=== PATIENT | male | born 1950 | race Caucasian/White ===

== ENCOUNTER → 2020-01-18 06:59 | Outpatient (CLI) | payer MEDICARE, OTHER, SELFPAY ==
[2020-01-18 07:51] LABS: Add Manual Diff / Slide Review NO; Basophils Absolute Auto 0 /uL (0-100); Basophils Percent Auto 0.7 % (0-2); Eosinophils Absolute Auto 300 /uL (0-450); Eosinophils Percent Auto 4.3 % (2-4); Hemoglobin 14.9 g/dL (13.5-17.5); Lymphocytes Absolute Auto 2500 /uL (1100-4500); Lymphocytes Percent Auto 38.1 % (25-40); Mean Corpuscular HGB Conc 34.6 % (30-36); Mean Corpuscular Hemoglobin 33.8 PG (26-34); Mean Corpuscular Volume 97.6 fL (80-100); Monocytes Absolute Auto 700 /uL (0-900); Monocytes Percent Auto 10.4 % (3-14); Neutrophils Absolute Auto 3000 /uL (1500-7000); Neutrophils Percent Auto 46.5 % (50-75); Platelet Count 162 X10^3/uL (150-400); Red Cell Distribution Width 12.9 % (11.6-14.8); White Blood Cell Count 6.5 X10^3/uL (4.5-11.0)
[2020-01-18 08:23] LABS: Alanine Aminotransferase 259 IU/L (<50); Albumin 4.4 g/dL (3.5-5.0); Albumin Globulin Ratio 1.1 (1.0-2.8); Alkaline Phosphatase 105 U/L (38-126); Aspartate Aminotransferase 192 IU/L (17-59); BUN Creatinine Ratio 25.7 (6-22); Bilirubin Total 0.6 mg/dL (0.2-1.3); Blood Urea Nitrogen 18 mg/dL (9-20); Calcium 9.6 mg/dL (8.4-10.2); Carbon Dioxide 29 mmol/L (22-32); Chloride 104 mmol/L (98-107); Cholesterol 187 mg/dL (140-199); Estimated Glomerular Filt Rate > 60.0 mL/min (>60); Globulin 3.9 g/dL (1.7-4.1); Glucose 159 mg/dL (80-110); HDL Cholesterol 32 mg/dL (40-60); HEMOLYSIS < 15 (0-50); LDL Cholesterol Calculated 118 mg/dL (<100); Potassium 4.3 mmol/L (3.4-5.1); Sodium 138 mmol/L (137-145); Total Protein 8.3 g/dL (6.3-8.2); Triglycerides 187 mg/dL (35-150)
[2020-01-18 08:50] LABS: Prostate Specific Antigen Scrn 0.798 ng/mL (0.1-4.0)
== END ==
PROVIDERS: Family Provider Internal Medicine; PCP Internal Medicine; Referring Provider Internal Medicine; Visit Provider Internal Medicine
DX: B19.20 Unspecified viral hepatitis C without hepatic coma (principal); Z13.6 Encounter for screening for cardiovascular disorders; Z13.1 Encounter for screening for diabetes mellitus; Z13.220 Encounter for screening for lipoid disorders; Z12.5 Encounter for screening for malignant neoplasm of prostate
CPT/HCPCS: 36415; 80053; 80061; 85025; 85610; G0103

== ENCOUNTER → 2020-03-01 08:53 | Outpatient (CLI) | payer MEDICARE, OTHER, SELFPAY ==
[2020-03-01 09:44] LABS: Hematocrit 41.9 % (41-53); Hemoglobin 14.8 g/dL (13.5-17.5); Mean Corpuscular HGB Conc 35.4 % (30-36); Mean Corpuscular Hemoglobin 34.3 PG (26-34); Platelet Count 159 X10^3/uL (150-400); Red Blood Cell Count 4.32 X10^6/uL (4.5-5.9); Red Cell Distribution Width 13.2 % (11.6-14.8); White Blood Cell Count 5.3 X10^3/uL (4.5-11.0)
[2020-03-01 10:03] LABS: Alanine Aminotransferase 166 IU/L (<50); Albumin 4.5 g/dL (3.5-5.0); Albumin Globulin Ratio 1.1 (1.0-2.8); Alkaline Phosphatase 89 U/L (38-126); Aspartate Aminotransferase 112 IU/L (17-59); BUN Creatinine Ratio 26.5 (6-22); Bilirubin Total 0.5 mg/dL (0.2-1.3); Blood Urea Nitrogen 18 mg/dL (9-20); Calcium 9.8 mg/dL (8.4-10.2); Carbon Dioxide 29 mmol/L (22-32); Chloride 103 mmol/L (98-107); Estimated Glomerular Filt Rate > 60.0 mL/min (>60); Globulin 4.1 g/dL (1.7-4.1); Glucose 145 mg/dL (80-110); HEMOLYSIS < 15 (0-50); Potassium 4.4 mmol/L (3.4-5.1); Sodium 137 mmol/L (137-145); Total Protein 8.6 g/dL (6.3-8.2)
[2020-03-01 10:35] LABS: Ferritin 372 ng/mL (18-464)
[2020-03-01 10:48] LABS: Hepatitis B Surface Antigen NEGATIVE s/c (NEGATIVE)
[2020-03-01 10:53] LABS: HEMOLYSIS < 15 (0-50); Iron 176 ug/dL (49-181)
[2020-03-01 11:04] LABS: Percent Iron Saturation 50 % (20-50); Total Iron Binding Capacity 352 ug/dL (261-462); Transferrin 266 mg/dL (206-381)
[2020-03-02 01:45] LABS: Hepatitis A Antibody Total Positive (Negative)
[2020-03-02 05:11] LABS: Ceruloplasmin 21.1 mg/dL (16.0-31.0)
[2020-03-02 09:36] LABS: Hepatitis B Core IgM Negative (Negative); Hepatitis B Surf Ab Qualitativ Non Reactive (.)
[2020-03-03 15:11] LABS: ANA Screen, IFA Negative (.)
[2020-03-04 14:09] LABS: Anti Mitochondrial ABY IGG <20.0 Units (0.0-20.0); Smooth Muscle Antibody 14 Units (0-19)
[2020-03-08 12:54] LABS: HCV Genotype 2b (.); HCV LOG 10 5.013 (.)
[2020-03-08 21:50] LABS: Hepatitis C Genoype 2b (.)
== END ==
PROVIDERS: Family Provider Internal Medicine; PCP Internal Medicine; Referring Provider Nurse Practitioner Family; Visit Provider Nurse Practitioner Family
DX: R94.5 Abnormal results of liver function studies (principal); B18.2 Chronic viral hepatitis C; Z12.11 Encounter for screening for malignant neoplasm of colon
CPT/HCPCS: 36415; 80053; 82248; 82390; 82728; 83516; 83540; 83550; 85027; 86038; 86376; 86705; 86706; 86708; 87340; 87522; 87902

== ENCOUNTER → 2020-08-30 07:20 | Outpatient (CLI) | payer MEDICARE, OTHER, SELFPAY ==
[2020-08-30 08:45] LABS: Add Manual Diff / Slide Review NO; Basophils Absolute Auto 0 /uL (0-100); Basophils Percent Auto 0.5 % (0-2); Eosinophils Absolute Auto 300 /uL (0-450); Eosinophils Percent Auto 4.9 % (2-4); Hematocrit 41.8 % (41-53); Hemoglobin 14.5 g/dL (13.5-17.5); Lymphocytes Absolute Auto 2300 /uL (1100-4500); Lymphocytes Percent Auto 39.9 % (25-40); Mean Corpuscular HGB Conc 34.6 % (30-36); Mean Corpuscular Hemoglobin 34.1 PG (26-34); Mean Corpuscular Volume 98.6 fL (80-100); Monocytes Absolute Auto 500 /uL (0-900); Monocytes Percent Auto 8.7 % (3-14); Neutrophils Absolute Auto 2600 /uL (1500-7000); Platelet Count 140 X10^3/uL (150-400); Red Blood Cell Count 4.24 X10^6/uL (4.5-5.9); Red Cell Distribution Width 12.8 % (11.6-14.8); White Blood Cell Count 5.7 X10^3/uL (4.5-11.0)
[2020-08-30 09:16] LABS: Alanine Aminotransferase 94 IU/L (<50); Albumin 4.6 g/dL (3.5-5.0); Albumin Globulin Ratio 1.1 (1.0-2.8); Alkaline Phosphatase 228 U/L (38-126); Aspartate Aminotransferase 88 IU/L (17-59); Bilirubin Total 0.8 mg/dL (0.2-1.3); Blood Urea Nitrogen 21 mg/dL (9-20); Calcium 10.4 mg/dL (8.4-10.2); Carbon Dioxide 28 mmol/L (22-32); Chloride 96 mmol/L (98-107); Estimated Glomerular Filt Rate > 60.0 mL/min (>60); Globulin 4.2 g/dL (1.7-4.1); HEMOLYSIS < 15 (0-50); Potassium 5.2 mmol/L (3.4-5.1); Sodium 132 mmol/L (137-145); Total Protein 8.8 g/dL (6.3-8.2)
[2020-08-30 09:36] LABS: Glucose 650 mg/dL (80-110)
[2020-08-30 10:31] LABS: Hemoglobin A1C% w Est Avg Glu 9.5 % (4.0-6.0)
== END ==
PROVIDERS: Family Provider Internal Medicine; PCP Internal Medicine; Referring Provider Nurse Practitioner Family; Visit Provider Nurse Practitioner Family
DX: B18.2 Chronic viral hepatitis C (principal); R73.9 Hyperglycemia, unspecified
CPT/HCPCS: 36415; 80053; 83036; 85025; 87522

== ENCOUNTER 2020-08-30 11:09 | Emergency (ER) | payer OTHER, MEDICARE, SELFPAY ==
[2020-08-30 11:51] VITALS: BP 182/90; PULSE 71; RESP 18; TEMP 36.3; O2SAT 97; BMI 30.1
[2020-08-30] MEDS: LACTATED RINGERS 1,000 ML 1000 ML IV ×2 (14:20→15:35)
--- NOTE | 2020-08-30 15:19 | ED.RECABL ---
HPI - Recheck/Abnormal Lab/Rx General Chief Complaint: Recheck/Abnormal Lab/Rx Stated Complaint: REAL HIGH READING OF BLOOD SUGAR Time Seen by Provider: 08/30/20 12:16 Source: patient Mode of arrival: Ambulatory Limitations: no limitations History of Present Illness HPI narrative: This is a 69-year-old male who comes in with complaint of elevated glucose on his lab draw. Patient was recently started on Epclusa a medication for hepatitis-C. He takes it daily and started 4 weeks ago. He was started by [facility] out of [place]. Patient does not recall his relationship specialist's name. His primary care is Dr. Gramajo. Patient states he otherwise has no known medical issues. He has not had any major surgeries. He is allergic to penicillin. He denies tobacco, alcohol or illicit. Patient is noted his vision has been a little bit better lately when he is driving at nighttime, he denies headaches, no chest pain or shortness of breath, no cold cough or congestion, he has had some mild nausea but states he was told that was secondary to his medication. He has not had any diarrhea or constipation. He has had urinary frequency any but had some new urinary incontinence. Patient has not had any dysuria or discharge. Patient states he is not a diabetic he was contacted and told his glucose was in the 600 range and to go to the emergency department earlier today after follow-up labs that were scheduled because of his current medication. Related Data Home Medications Medication Instructions Recorded Confirmed CA PANTOTHENATE/FOLIC ACID/VIT 1 tab PO Q DAY #0 12/26/10 01/17/20 (MULTIVITAMIN) Joint Juice 1 cap PO DAILY 01/17/20 Previous Rx's Medication Instructions Recorded metformin 500 mg tablet 500 mg PO BID #30 tab 08/30/20 Allergies Allergy/AdvReac Type Severity Reaction Status Date / Time Penicillins [PENICILLINS] Allergy Intermediate RASH Verified 01/17/20 11:38 Review of Systems Review of Systems ROS Unobtainable: All systems reviewed & are unremarkable except as noted in HPI and below Patient History Medical History (Updated 08/30/20 @ 15:35 by Micheline Pringle DO) Adopted Attention deficit disorder with hyperactivity (12/26/10) Hepatitis C Mumps Partial blindness (~1950) Seizure Surgical History (Updated 01/17/20 @ 20:41 by Radha Castillo) Anesthesia History of hand surgery (~2007) S/P tonsillectomy (~1959) Social History Smoking Status: Former smoker Smoking Status: Former smoker alcohol intake frequency: 0-2 drinks per day Substance Use Type: does not use Exam Narrative Exam Narrative: GENERAL: Alert and oriented x three, male in mild distress. HEENT: Head normocephalic, atraumatic, EOMI, pupils reactive, face symmetric, moist mucous membranes NECK: Supple, full range of motion CARDIOVASCULAR: Regular rate and rhythm without murmurs, rubs or gallops. RESPIRATORY: Breath sounds equal bilaterally, no wheezes rales or rhonchi. ABDOMEN: Soft, nontender. Normoactive bowel sounds all 4 quadrants. No guarding or rebound, rigidity, no mass : No CVA tenderness EXTREMITIES: Normal range of motion, no clubbing or edema. Neurovascularly intact NEUROLOGICAL: Cranial nerves II through XII grossly intact. Moving all extremities SKIN: Warm, dry, no petechiae, no rashes or lesions. Initial Vital Signs Initial Vital Signs: Vital Signs Temperature 97.3 F L 08/30/20 11:51 Pulse Rate 71 08/30/20 11:51 Respiratory Rate 18 08/30/20 11:51 Blood Pressure 182/90 H 08/30/20 11:51 Pulse Oximetry 97 08/30/20 11:51 Course Orders Ordered: ED Orders 08/30/20 12:21 Venous Blood Gas Stat 08/30/20 14:12 Complete Blood Count AUTO DIFF Stat Comprehensive Metabolic Panel Stat Ketones (Beta-Hydroxybutyrate) Stat Procalcitonin Stat Discontinued Medications Lactated Ringer's (Lactated Ringers) 1,000 mls @ 1,000 mls/hr IV BOLUS ONE Stop: 08/30/20 13:20 Last Infusion: 08/30/20 15:28 Dose: 0 mls/hr Documented by: [email or web address] Admin: 08/30/20 14:20 Dose: 1,000 mls/hr Documented by: [email or web address] Sodium Chloride (Normal Saline 0.9%) 1,000 mls @ 1,000 mls/hr IV BOLUS ONE Stop: 08/30/20 16:25 Lactated Ringer's (Lactated Ringers) 1,000 mls @ 1,000 mls/hr IV BOLUS ONE Stop: 08/30/20 16:33 Last Infusion: 08/30/20 16:35 Dose: 0 mls/hr Documented by: Admin: 08/30/20 15:35 Dose: 1,000 mls/hr Documented by: NATALY Consultations Consultation #1: Dr. Maddox with [facility], is not aware of any side effects with hyperglycemia or diabetes but there is potential it could add mask or worsen. Consultation #2: Dr. Gramajo, plan for metformin 500 mg b.i.d. if there is an appropriate side effect profile glipizide be back up choice. Have patient follow-up in the next week. Vital Signs Vital signs: Vital Signs - 8 hr 08/30/20 11:51 Temperature 97.3 F L Pulse Rate 71 Respiratory Rate 18 Blood Pressure 182/90 H Pulse Oximetry 97 MDM - Recheck/Abnormal Lab/Rx Lab Data Lab results narrative: anion gap 10. Patient had labs drawn earlier today which showed a glucose of 650, sodium of 132 with potassium of 5.2 and a BUN of 21 with a CO2 of 28. Patient also had a hemoglobin A1c which was 9.5 earlier today. LFTs are elevated but do not appear significantly elevated from earlier this year except for alk-phos which is 228 followed by 197 today. Point of care urine shows glucose but no other acute changes. Result diagrams: 08/30/20 14:12 08/30/20 14:12 Labs: Lab Results 08/30/20 08/30/20 Range/Units 14:12 14:12 WBC 7.2 (4.5-11.0) X10^3/uL RBC 4.34 L (4.5-5.9) X10^6/uL Hgb 14.9 (13.5-17.5) g/dL Hct 42.0 (41-53) % MCV 96.8 (80-100) fL MCH 34.2 H (26-34) PG MCHC 35.4 (30-36) % RDW 12.5 (11.6-14.8) % Plt Count 153 (150-400) X10^3/uL Neut % (Auto) 42.6 L (50-75) % Lymph % (Auto) 44.4 H (25-40) % [place] % (Auto) 8.3 (3-14) % Eos % (Auto) 4.0 (2-4) % Baso % (Auto) 0.7 (0-2) % Neut # (Auto) 3100 (1102-0864) /uL Lymph # (Auto) 3200 (4650-5866) /uL [place] # (Auto) 600 (0-900) /uL Eos # (Auto) 300 (0-450) /uL Baso # (Auto) 100 (0-100) /uL Sodium 135 L (137-145) mmol/L Potassium 4.4 (3.4-5.1) mmol/L Chloride 97 L (98-107) mmol/L Carbon Dioxide 28 (22-32) mmol/L BUN 19 (9-20) mg/dL Creatinine 0.73 (0.66-1.25) mg/dL Estimated GFR > 60.0 (>60) mL/min BUN/Creatinine Ratio 26.0 H (6-22) Glucose 497 H* (80-110) mg/dL Calcium 10.5 H (8.4-10.2) mg/dL Total Bilirubin 0.9 (0.2-1.3) mg/dL AST 95 H (17-59) IU/L ALT 106 H (<50) IU/L Alkaline Phosphatase 197 H (38-126) U/L Total Protein 9.6 H (6.3-8.2) g/dL Albumin 4.9 (3.5-5.0) g/dL Globulin 4.7 H (1.7-4.1) g/dL Albumin/Globulin Ratio 1.0 (1.0-2.8) Procalcitonin 0.18 (<0.5) ng/mL Ketones 0.18 (<0.27) mmol/L Point of Care Testing Glucose POC 361 Urine Dip Bedside Urine Glucose 1000 mg/dl Bedside Urine Bilirubin - Negative Bedside Urine Ketone - Negative Urine Specific [place] 1.015 Bedside Urine Occult Blood - Negative Bedside Urine pH 6.0 Bedside Urine Protein - Negative Bedside Urine Urobilinogen - Negative Bedside Urine Nitrite - Negative Bedside Urine Leukocytes - Negative Esterase MDM Narrative Medical decision making narrative: Is a 69-year-old male who had outpatient labs after starting a hepatitis-C antiviral medication, patient glucose was in the 600 range. On review hemoglobin A1c is 9.5 and patient is likely just a diabetic and I did speak with gastroenterology who states this medication is not expected to cause issues in terms of side effects and causing diabetes or hyperglycemia. This was also reviewed independently by myself through alternate resources which also states the same. Patient is hyperglycemic, does not appear to be in DKA. I does not have any acute yes infectious findings at this time or other causes. Patient glucose improved quite a bit purely with fluids. Discussed with primary care who recommends metformin or glipizide depending on the side effect profiles. After review metformin was selected as less likely to cause hypoglycemia, there is potential for interaction with medications patient is to follow up within the week with his primary care physician for repeat testing and evaluation. All questions were answered. Discharge Plan Departure Patient Disposition: Home Clinical Impression: Hyperglycemia Instructions: Complications of Type 2 Diabetes Activity Restrictions/Additional Instructions: Follow-up with Dr. Gramajo in the next week. Call for an appointment. You will need to have your labs rechecked. Start metformin 500 mg twice daily. This medication can cause diarrhea or loose stools so please be aware. This medication does not typically cause hypoglycemia but there is slightly increased potential with your current hepatitis C medication. Your labs today do reflect that you are diabetic, 1 of your labs a hemoglobin A1c which is a type of average over 3 months is quite elevated making your new medication and unlikely cause of her hyperglycemia Prescription sent to [facility] in [place] Please return for lightheadedness or passing out, altered mental status, chest pain or shortness of breath, persistent vomiting, new swelling of her extremities, black or bloody stools or other new or concerning symptoms. Prescriptions: New metformin 500 mg tablet 500 mg PO BID Qty: 30 RF: 0 No Action CA PANTOTHENATE/FOLIC ACID/VIT (MULTIVITAMIN) 1 tab PO Q DAY Qty: 0 RF: 0 Joint Juice 1 cap PO DAILY RF: 0 Referrals: Karthikeyan Gramajo MD [Primary Care Provider] -
== END 2020-08-30 16:45 | disposition home or self-care (01) ==
PROVIDERS: Emergency Provider Emergency Medicine; Family Provider Internal Medicine; PCP Internal Medicine
DX: R73.9 Hyperglycemia, unspecified (principal); B18.2 Chronic viral hepatitis C
CPT/HCPCS: 36415; 80053; 81003; 82009; 82962; 83036; 84145; 85025; 87522; 96360; 96361; 99284

== ENCOUNTER → 2020-09-27 08:09 | Outpatient (CLI) | payer OTHER, MEDICARE, SELFPAY ==
[2020-09-27 09:58] LABS: Add Manual Diff / Slide Review NO; Basophils Absolute Auto 0 /uL (0-100); Basophils Percent Auto 0.7 % (0-2); Eosinophils Absolute Auto 300 /uL (0-450); Eosinophils Percent Auto 5.3 % (2-4); Hematocrit 37.9 % (41-53); Hemoglobin 13.3 g/dL (13.5-17.5); Lymphocytes Absolute Auto 2600 /uL (1100-4500); Lymphocytes Percent Auto 47.6 % (25-40); Mean Corpuscular HGB Conc 35.1 % (30-36); Mean Corpuscular Hemoglobin 33.9 PG (26-34); Mean Corpuscular Volume 96.6 fL (80-100); Monocytes Absolute Auto 500 /uL (0-900); Monocytes Percent Auto 8.3 % (3-14); Neutrophils Absolute Auto 2100 /uL (1500-7000); Neutrophils Percent Auto 38.1 % (50-75); Platelet Count 172 X10^3/uL (150-400); Red Blood Cell Count 3.93 X10^6/uL (4.5-5.9); White Blood Cell Count 5.5 X10^3/uL (4.5-11.0)
[2020-09-27 10:39] LABS: Alanine Aminotransferase 77 IU/L (<50); Albumin 4.5 g/dL (3.5-5.0); Albumin Globulin Ratio 1.2 (1.0-2.8); Alkaline Phosphatase 98 U/L (38-126); Aspartate Aminotransferase 78 IU/L (17-59); BUN Creatinine Ratio 46.7 (6-22); Bilirubin Total 0.4 mg/dL (0.2-1.3); Blood Urea Nitrogen 28 mg/dL (9-20); Calcium 10.5 mg/dL (8.4-10.2); Carbon Dioxide 25 mmol/L (22-32); Chloride 108 mmol/L (98-107); Estimated Glomerular Filt Rate > 60.0 mL/min (>60); Globulin 3.9 g/dL (1.7-4.1); Glucose 113 mg/dL (80-110); HEMOLYSIS < 15 (0-50); Potassium 4.4 mmol/L (3.4-5.1); Sodium 141 mmol/L (137-145); Total Protein 8.4 g/dL (6.3-8.2)
== END ==
PROVIDERS: Family Provider Internal Medicine; PCP Internal Medicine; Referring Provider Nurse Practitioner Family; Visit Provider Nurse Practitioner Family
DX: B18.2 Chronic viral hepatitis C (principal)
CPT/HCPCS: 36415; 80053; 85025; 87522

== ENCOUNTER → 2020-11-20 11:18 | Outpatient (CLI) | payer OTHER, MEDICARE, SELFPAY ==
[2020-11-20 11:58] LABS: BUN Creatinine Ratio 33.8 (6-22); Blood Urea Nitrogen 26 mg/dL (9-20); Calcium 10.3 mg/dL (8.4-10.2); Carbon Dioxide 30 mmol/L (22-32); Chloride 105 mmol/L (98-107); Estimated Glomerular Filt Rate > 60.0 mL/min (>60); Glucose 94 mg/dL (80-110); HEMOLYSIS < 15 (0-50); Potassium 4.7 mmol/L (3.4-5.1); Sodium 143 mmol/L (137-145)
== END ==
PROVIDERS: Family Provider Internal Medicine; PCP Internal Medicine; Referring Provider Internal Medicine; Visit Provider Internal Medicine
DX: E11.65 Type 2 diabetes mellitus with hyperglycemia (principal)
CPT/HCPCS: 36415; 80048; 83036

== ENCOUNTER → 2020-12-20 15:09 | Outpatient (CLI) | payer OTHER, MEDICARE, SELFPAY ==
[2020-12-20 15:50] LABS: Add Manual Diff / Slide Review NO; Basophils Absolute Auto 0 /uL (0-100); Basophils Percent Auto 0.6 % (0-2); Eosinophils Absolute Auto 200 /uL (0-450); Eosinophils Percent Auto 3.9 % (2-4); Hematocrit 38.8 % (41-53); Hemoglobin 13.4 g/dL (13.5-17.5); Lymphocytes Absolute Auto 2800 /uL (1100-4500); Lymphocytes Percent Auto 47.2 % (25-40); Mean Corpuscular HGB Conc 34.7 % (30-36); Mean Corpuscular Hemoglobin 33.3 PG (26-34); Mean Corpuscular Volume 96.2 fL (80-100); Monocytes Absolute Auto 600 /uL (0-900); Monocytes Percent Auto 9.8 % (3-14); Neutrophils Absolute Auto 2300 /uL (1500-7000); Neutrophils Percent Auto 38.5 % (50-75); Platelet Count 188 X10^3/uL (150-400); Red Blood Cell Count 4.03 X10^6/uL (4.5-5.9)
[2020-12-20 16:13] LABS: Alanine Aminotransferase 47 IU/L (<50); Albumin 4.7 g/dL (3.5-5.0); Albumin Globulin Ratio 1.4 (1.0-2.8); Alkaline Phosphatase 89 U/L (38-126); Aspartate Aminotransferase 51 IU/L (17-59); Bilirubin Total 0.4 mg/dL (0.2-1.3); Blood Urea Nitrogen 33 mg/dL (9-20); Calcium 9.9 mg/dL (8.4-10.2); Carbon Dioxide 28 mmol/L (22-32); Chloride 103 mmol/L (98-107); Estimated Glomerular Filt Rate > 60.0 mL/min (>60); Globulin 3.3 g/dL (1.7-4.1); Glucose 108 mg/dL (80-110); HEMOLYSIS < 15 (0-50); Potassium 4.4 mmol/L (3.4-5.1); Sodium 143 mmol/L (137-145)
== END ==
PROVIDERS: Family Provider Internal Medicine; PCP Internal Medicine; Referring Provider Nurse Practitioner Family; Visit Provider Nurse Practitioner Family
DX: B18.2 Chronic viral hepatitis C (principal)
CPT/HCPCS: 36415; 80053; 85025; 87522

== ENCOUNTER → 2021-03-05 15:31 | Outpatient (CLI) | payer OTHER, MEDICARE, SELFPAY ==
[2021-03-05 16:40] LABS: BUN Creatinine Ratio 38.6 (6-22); Blood Urea Nitrogen 32 mg/dL (9-20); Calcium 9.9 mg/dL (8.4-10.2); Carbon Dioxide 31 mmol/L (22-32); Chloride 105 mmol/L (98-107); Estimated Glomerular Filt Rate > 60.0 mL/min (>60); Glucose 113 mg/dL (80-110); HEMOLYSIS < 15 (0-50); Sodium 143 mmol/L (137-145)
[2021-03-05 16:44] LABS: Hemoglobin A1C% w Est Avg Glu 5.7 % (4.0-6.0)
== END ==
PROVIDERS: Family Provider Internal Medicine; PCP Internal Medicine; Referring Provider Internal Medicine; Visit Provider Internal Medicine
DX: E11.65 Type 2 diabetes mellitus with hyperglycemia (principal)
CPT/HCPCS: 36415; 80048; 83036

== ENCOUNTER → 2021-10-18 10:18 | Outpatient (CLI) | payer OTHER, MEDICARE, SELFPAY ==
[2021-10-18 10:56] LABS: Hemoglobin A1C% w Est Avg Glu 5.8 % (4.0-6.0)
[2021-10-18 12:36] LABS: Alanine Aminotransferase 63 IU/L (<50); Albumin 4.7 g/dL (3.5-5.0); Albumin Globulin Ratio 1.3 (1.0-2.8); Alkaline Phosphatase 69 U/L (38-126); Aspartate Aminotransferase 58 IU/L (17-59); BUN Creatinine Ratio 31.6 (6-22); Bilirubin Total 0.6 mg/dL (0.2-1.3); Blood Urea Nitrogen 24 mg/dL (9-20); Calcium 9.9 mg/dL (8.4-10.2); Carbon Dioxide 27 mmol/L (22-32); Chloride 106 mmol/L (98-107); Estimated Glomerular Filt Rate > 60 mL/min (>60); Globulin 3.7 g/dL (1.7-4.1); Glucose 101 mg/dL (80-110); HEMOLYSIS < 15 (0-50); Potassium 4.7 mmol/L (3.4-5.1); Sodium 139 mmol/L (137-145); Total Protein 8.4 g/dL (6.3-8.2)
[2021-10-18 13:04] LABS: Prostate Specific Antigen Scrn 1.34 ng/mL (0.1-4.0)
== END ==
PROVIDERS: Family Provider Internal Medicine; PCP Internal Medicine; Referring Provider Internal Medicine; Visit Provider Internal Medicine
DX: B18.2 Chronic viral hepatitis C (principal); E11.9 Type 2 diabetes mellitus without complications; Z12.5 Encounter for screening for malignant neoplasm of prostate
CPT/HCPCS: 36415; 80053; 83036; G0103

== ENCOUNTER → 2022-04-18 07:39 | Outpatient (CLI) | payer OTHER, MEDICARE, SELFPAY ==
[2022-04-18 08:11] LABS: Hemoglobin A1C% w Est Avg Glu 6.1 % (4.0-6.0)
[2022-04-18 08:21] LABS: BUN Creatinine Ratio 27.1 (6-22); Blood Urea Nitrogen 23 mg/dL (9-20); Calcium 9.6 mg/dL (8.4-10.2); Carbon Dioxide 25 mmol/L (22-32); Chloride 104 mmol/L (98-107); Estimated Glomerular Filt Rate > 60 mL/min (>60); Glucose 123 mg/dL (80-110); HEMOLYSIS < 15 (0-50); Potassium 4.5 mmol/L (3.4-5.1); Sodium 141 mmol/L (137-145)
[2022-04-18 08:46] LABS: Microalbumi Creatinin Ratio Ur 51.8 ug/mg CR (<30); Microalbumin Urine Random 12.7 mg/dL (0-1.6)
== END ==
PROVIDERS: Family Provider Internal Medicine; PCP Internal Medicine; Referring Provider Internal Medicine; Visit Provider Internal Medicine
DX: E11.9 Type 2 diabetes mellitus without complications (principal)
CPT/HCPCS: 36415; 80048; 82043; 82570; 83036

== ENCOUNTER → 2022-10-18 08:36 | Outpatient (CLI) | payer OTHER, MEDICARE, SELFPAY ==
[2022-10-18 10:15] LABS: Hemoglobin A1C% w Est Avg Glu 5.9 % (4.0-6.0)
[2022-10-18 10:19] LABS: Alanine Aminotransferase 96 IU/L (<50); Albumin 4.8 g/dL (3.5-5.0); Albumin Globulin Ratio 1.3 (1.0-2.8); Alkaline Phosphatase 59 U/L (38-126); Aspartate Aminotransferase 68 IU/L (17-59); BUN Creatinine Ratio 27.1 (6-22); Bilirubin Total 0.8 mg/dL (0.2-1.3); Blood Urea Nitrogen 23 mg/dL (9-20); Calcium 9.5 mg/dL (8.4-10.2); Carbon Dioxide 26 mmol/L (22-32); Chloride 106 mmol/L (98-107); Cholesterol 218 mg/dL (140-199); Estimated Glomerular Filt Rate > 60 mL/min (>60); Globulin 3.8 g/dL (1.7-4.1); Glucose 126 mg/dL (80-110); HDL Cholesterol 32 mg/dL (40-60); HEMOLYSIS < 15 (0-50); LDL Cholesterol Calculated 152 mg/dL (<100); Potassium 4.2 mmol/L (3.4-5.1); Sodium 140 mmol/L (137-145); Total Protein 8.6 g/dL (6.3-8.2); Triglycerides 169 mg/dL (35-150)
[2022-10-18 12:02] LABS: Creatinine Urine Random 128.5 mg/dL
[2022-10-18 12:05] LABS: Microalbumi Creatinin Ratio Ur 38.1 ug/mg CR (<30); Microalbumin Urine Random 4.9 mg/dL (0-1.6)
== END ==
PROVIDERS: Family Provider Internal Medicine; PCP Internal Medicine; Referring Provider Internal Medicine; Visit Provider Internal Medicine
DX: B19.20 Unspecified viral hepatitis C without hepatic coma (principal); E11.9 Type 2 diabetes mellitus without complications; Z13.220 Encounter for screening for lipoid disorders; Z13.6 Encounter for screening for cardiovascular disorders
CPT/HCPCS: 36415; 80053; 80061; 82043; 82570; 83036

== ENCOUNTER → 2023-04-18 08:37 | Outpatient (CLI) | payer OTHER, MEDICARE, SELFPAY ==
[2023-04-18 09:37] LABS: Hemoglobin A1C% w Est Avg Glu 6.2 % (4.0-6.0)
[2023-04-18 09:39] LABS: Alanine Aminotransferase 54 IU/L (<50); Albumin 4.6 g/dL (3.5-5.0); Albumin Globulin Ratio 1.3 (1.0-2.8); Alkaline Phosphatase 56 U/L (38-126); Aspartate Aminotransferase 50 IU/L (17-59); BUN Creatinine Ratio 28.2 (6-22); Bilirubin Total 0.7 mg/dL (0.2-1.3); Blood Urea Nitrogen 22 mg/dL (9-20); Calcium 9.5 mg/dL (8.4-10.2); Carbon Dioxide 26 mmol/L (22-32); Chloride 106 mmol/L (98-107); Cholesterol 107 mg/dL (140-199); Estimated Glomerular Filt Rate > 60 mL/min (>60); Globulin 3.5 g/dL (1.7-4.1); Glucose 119 mg/dL (80-110); HDL Cholesterol 34 mg/dL (40-60); HEMOLYSIS < 15 (0-50); LDL Cholesterol Calculated 49 mg/dL (<100); Potassium 4.4 mmol/L (3.4-5.1); Sodium 140 mmol/L (137-145); Total Protein 8.1 g/dL (6.3-8.2); Triglycerides 118 mg/dL (35-150)
== END ==
PROVIDERS: Family Provider Internal Medicine; PCP Internal Medicine; Referring Provider Internal Medicine; Visit Provider Internal Medicine
DX: E11.9 Type 2 diabetes mellitus without complications (principal); E78.2 Mixed hyperlipidemia
CPT/HCPCS: 80053; 80061; 83036

== ENCOUNTER → 2023-08-11 14:58 | Outpatient (CLI) | payer OTHER, MEDICARE, SELFPAY ==
[2023-08-11 15:54] LABS: Influenza A - CEPHEID Flu A NEGATIVE (NEGATIVE); Influenza B - CEPHEID Flu B NEGATIVE (NEGATIVE); Respiratory Syncytial Virus Negative (Negative)
[2023-08-11 15:57] LABS: COVID-19 CEPHEID 4-PLEX PCR POSITIVE (Negative)
== END ==
PROVIDERS: Family Provider Internal Medicine; PCP Internal Medicine; Visit Provider Internal Medicine
DX: B34.9 Viral infection, unspecified (principal)
CPT/HCPCS: 0241U

== ENCOUNTER 2023-08-14 16:36 | Emergency (ER) | payer OTHER, MEDICARE, SELFPAY ==
[2023-08-14 16:39] VITALS: BP 160/71; PULSE 74; RESP 18; TEMP 36.3; O2SAT 95; BMI 28.7
[2023-08-14] MEDS: KETOROLAC 30 MG/ML VIAL IV (17:19)
[2023-08-14 17:30] LABS: Add Manual Diff / Slide Review NO; Basophils Absolute Auto 0 /uL (0-100); Basophils Percent Auto 0.4 % (0-2); Eosinophils Absolute Auto 300 /uL (0-450); Eosinophils Percent Auto 3.7 % (2-4); Hematocrit 40.2 % (41-53); Hemoglobin 13.9 g/dL (13.5-17.5); Lymphocytes Absolute Auto 2200 /uL (1100-4500); Lymphocytes Percent Auto 30.5 % (25-40); Mean Corpuscular HGB Conc 34.6 % (30-36); Mean Corpuscular Hemoglobin 32.9 PG (26-34); Mean Corpuscular Volume 94.9 fL (80-100); Monocytes Absolute Auto 500 /uL (0-900); Monocytes Percent Auto 7.3 % (3-14); Neutrophils Absolute Auto 4300 /uL (1500-7000); Neutrophils Percent Auto 58.1 % (50-75); Platelet Count 255 X10^3/uL (150-400); Red Blood Cell Count 4.24 X10^6/uL (4.5-5.9); Red Cell Distribution Width 13.5 % (11.6-14.8); White Blood Cell Count 7.3 X10^3/uL (4.5-11.0)
[2023-08-14 17:34] LABS: D Dimer 533 ng/ml (<500)
[2023-08-14 17:35] LABS: BUN Creatinine Ratio 27.7 (6-22); Blood Urea Nitrogen 28 mg/dL (9-20); Calcium 10.9 mg/dL (8.4-10.2); Carbon Dioxide 25 mmol/L (22-32); Chloride 104 mmol/L (98-107); Estimated Glomerular Filt Rate > 60 mL/min (>60); Glucose 103 mg/dL (80-110); HEMOLYSIS < 15 (0-50); Potassium 5.1 mmol/L (3.4-5.1); Sodium 140 mmol/L (137-145)
--- NOTE | 2023-08-14 18:14 | ED_ITS ---
HPI - Extremity Problem General Chief complaint: Extremity Problem,Nontraumatic Stated complaint: Lt leg pain Time Seen by Provider: 08/14/23 17:04 Source: patient, family, RN notes reviewed and old records reviewed Mode of arrival: Ambulatory Limitations: no limitations History of Present Illness HPI Narrative: 72-year-old male with history of chronic arthritis, hepatitis-C diabetes type 2 and dyslipidemia who presents with complaint of left lateral thigh pain. Patient states pain is particularly worse when he coughs it sort of moved from his buttock down his leg. He denies any swelling, no redness. He states it just started in the last 2 days. He has recently had a diagnosis of COVID he has not reported any fevers but has had cough cold and congestion be generally fatigued. He denies any chest pain denies any shortness of breath. No nausea or vomiting. He has had some diarrhea after starting antiviral for his COVID. Denies any incontinence. Patient has not had similar symptoms in the past. He does state he chronically has aches and pains from his arthritis. Reported allergy to penicillin. Related Data Home Medications Medication Instructions Recorded Confirmed CA PANTOTHENATE/FOLIC ACID/VIT 1 tab PO Q DAY ##0 12/26/10 08/11/23 (MULTIVITAMIN) acetaminophen 500 mg tablet 1,000 mg PO BID PRN 04/24/23 08/11/23 (Tylenol Extra Strength) celecoxib 200 mg capsule 200 mg PO BID 04/24/23 08/11/23 sulfasalazine 500 mg tablet 1,000 mg PO BID 08/11/23 08/11/23 Previous Rx's Medication Instructions Recorded rosuvastatin 20 mg tablet 20 mg PO DAILY #90 tabs 10/24/22 nirmatrelvir 300 mg (150 mg See Rx Instructions PO .COMPLEX 5 08/11/23 x2)-ritonavir 100 mg tablet,dose days #30 tabs pack (Paxlovid) oxycodone 5 mg tablet 5 mg PO Q6H PRN pain #10 tabs 08/14/23 Allergies Allergy/AdvReac Type Severity Reaction Status Date / Time Penicillins [PENICILLINS] AdvReac Intermediate RASH Verified 08/14/23 16:38 Review of Systems Review of Systems ROS Unobtainable: All systems reviewed & are unremarkable except as noted in HPI and below Patient History Medical History Diabetic nephropathy Mixed hyperlipidemia 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 NECK: Supple, full range of motion CARDIOVASCULAR: Regular rate and rhythm without murmurs, rubs or gallops. RESPIRATORY: Breath sounds equal bilaterally, no wheezes rales or rhonchi. ABDOMEN: Soft, nontender. Normoactive bowel sounds all 4 quadrants. No guarding or rebound, rigidity, no mass : No CVA tenderness BACK: No cervical, thoracic or lumbar vertebral point tenderness. Patient has normal range of motion. Patient's gait is normal. EXTREMITIES: Normal range of motion, no clubbing or edema. Neurovascularly intact. Swelling warmth or erythema or other changes. Patient has 5/5 muscle strength. Normal sensation throughout. Does not have any increased pain on palpation. Cap refill less than 2 seconds bilateral lower extremities. Patient able to stand and ambulate without issue NEUROLOGICAL: Cranial nerves II through XII grossly intact. Moving all extremities SKIN: Warm, dry, no petechiae, no rashes or lesions. Initial Vital Signs Initial Vital Signs: Vital Signs Temperature 97.3 F L 08/14/23 16:39 Pulse Rate 74 08/14/23 16:39 Respiratory Rate 18 08/14/23 16:39 Blood Pressure 160/71 H 08/14/23 16:39 Pulse Oximetry 95 08/14/23 16:39 Oxygen Delivery Method Room Air 08/14/23 16:39 Course Orders Ordered: Discontinued Medications Ketorolac Tromethamine (Ketorolac 30 Mg/Ml Vial) 30 mg IV NOW ONE Stop: 08/14/23 17:07 Last Admin: 08/14/23 17:19 Dose: 30 mg Documented By: DKVarsha Vital Signs Vital signs: Vital Signs - 8 hr 08/14/23 16:39 08/14/23 19:37 Temperature 97.3 F L Pulse Rate 74 81 Respiratory Rate 18 18 Blood Pressure 160/71 H 149/74 H Pulse Oximetry 95 97 Oxygen Delivery Method Room Air MDM - Extremity (Nontraumatic) Lab Data 08/14/23 17:16 08/14/23 17:16 Labs: Lab Results 08/14/23 Range/Units 17:16 WBC 7.3 (4.5-11.0) X10^3/uL RBC 4.24 L (4.5-5.9) X10^6/uL Hgb 13.9 (13.5-17.5) g/dL Hct 40.2 L (41-53) % MCV 94.9 (80-100) fL MCH 32.9 (26-34) PG MCHC 34.6 (30-36) % RDW 13.5 (11.6-14.8) % Plt Count 255 (150-400) X10^3/uL Neut % (Auto) 58.1 (50-75) % Lymph % (Auto) 30.5 (25-40) % [place] % (Auto) 7.3 (3-14) % Eos % (Auto) 3.7 (2-4) % Baso % (Auto) 0.4 (0-2) % Neut # (Auto) 4300 (2959-2914) /uL Lymph # (Auto) 2200 (4592-0076) /uL [place] # (Auto) 500 (0-900) /uL Eos # (Auto) 300 (0-450) /uL Baso # (Auto) 0 (0-100) /uL D-Dimer 533 H (<500) ng/ml Sodium 140 (137-145) mmol/L Potassium 5.1 (3.4-5.1) mmol/L Chloride 104 (98-107) mmol/L Carbon Dioxide 25 (22-32) mmol/L BUN 28 H (9-20) mg/dL Creatinine 1.01 (0.66-1.25) mg/dL Estimated GFR > 60 (>60) mL/min BUN/Creatinine Ratio 27.7 H (6-22) Glucose 103 (80-110) mg/dL Calcium 10.9 H (8.4-10.2) mg/dL Imaging Data US - DVT: Radiologist's Impression: [address] [address] Ultrasound Report Signed Patient: Faheem Huston MR#: [id number] : 1950 Acct:[id number] Age/Sex: 72 / M Date of Service: 08/14/23 Loc: ED Accession Number: [id number] Procedure: US periph venous low extrem lt Ordering Provider: Micheline Pringle D.O. PROCEDURE: US PERIPH VENOUS LOW EXTREM LT INDICATIONS: left thigh pain, recent covid TECHNIQUE: Real-time imaging, as well as color and pulse Doppler interrogation, were performed of the lower extremity deep veins from the inguinal ligament to the popliteal fossa, with documentation of the visualized calf veins. COMPARISON: None. FINDINGS: Patient refused compression, which limits the sensitivity of the exam. The common femoral, femoral, popliteal, and the visualized calf veins are free of intraluminal thrombus. Color and pulse Doppler demonstrate normal phasic intraluminal flow. There is normal augmentation response to distal compression maneuver. IMPRESSION: No findings of lower extremity deep venous thrombosis. Approved by: Mehdi Eldridge M.D. on 08/14/2023 at 20:00 [facility] Narrative Medical decision making narrative: 72-year-old male with symptoms that seem most consistent likely with sciatica but does have recent COVID infection, had labs including D-dimer which was mildly elevated, but is still with a danis adjusted. Patient does have recent COVID infection so DVT ultrasound was obtained. DVT ultrasound is negative. Discussed with patient he is feeling improved. We will give prescription for short term narcotic pain medication he is already on Celebrex daily and takes Tylenol frequently. Discharge Plan Departure Patient Disposition: Home Clinical Impression: Sciatica of left side Instructions: DI for Sciatica Activity Restrictions/Additional Instructions: Follow up with your primary care for recheck. You can take Tylenol up to a 1000 mg every 6 hours as needed for pain. Can take oxycodone 1 tablet every 6 hours as needed in addition. This medication can make you sleepy do not drive, perform hazardous activities or make any major decisions while taking it. This medication will make you constipated please take a stool softener once to twice daily until stools are soft and regular. Prescription sent to [facility] in [place]. Please return for rapidly worsening symptoms, new numbness tingling or weakness, loss of bowel or bladder control, inability lift or move her leg or other new or concerning changes. Prescriptions: New oxycodone 5 mg tablet 5 mg PO Q6H PRN (Reason: pain) Qty: 10 0RF No Action CA PANTOTHENATE/FOLIC ACID/VIT (MULTIVITAMIN) 1 tab PO Q DAY Qty: 0 Paxlovid 300 mg (150 mg x 2)-100 mg tablets,dose pack See Rx Instructions PO .COMPLEX 5 Days Qty: 30 0RF Rx Instructions: take TWO 150 mg tablets of nirmatrelvir with ONE 100 mg tablet of ritonavir twice daily for 5 days PO Do Not Take Rosuvastatin while taking this medication Date of onset of sx: 08/07/2023 Normal Renal function with GFR >30 rosuvastatin 20 mg tablet 20 mg PO DAILY Qty: 90 3RF celecoxib 200 mg capsule 200 mg PO BID acetaminophen [Tylenol Extra Strength] 500 mg tablet 1,000 mg PO BID PRN sulfasalazine 500 mg tablet 1,000 mg PO BID Referrals: Karthikeyan Gramajo MD [Primary Care Provider] - Stand Alone Forms: Patient Portal/API
--- NOTE | 2023-08-14 18:20 | DI.US.S_ITS ---
PROCEDURE: US PERIPH VENOUS LOW EXTREM LT INDICATIONS: left thigh pain, recent covid TECHNIQUE: Real-time imaging, as well as color and pulse Doppler interrogation, were performed of the lower extremity deep veins from the inguinal ligament to the popliteal fossa, with documentation of the visualized calf veins. COMPARISON: None. FINDINGS: Patient refused compression, which limits the sensitivity of the exam. The common femoral, femoral, popliteal, and the visualized calf veins are free of intraluminal thrombus. Color and pulse Doppler demonstrate normal phasic intraluminal flow. There is normal augmentation response to distal compression maneuver. IMPRESSION: No findings of lower extremity deep venous thrombosis. Approved by: Mehdi Eldridge M.D. on 08/14/2023 at 20:00
[2023-08-14 19:37] VITALS: BP 149/74; PULSE 81; RESP 18; O2SAT 97
== END 2023-08-14 20:37 | disposition home or self-care (01) ==
PROVIDERS: Emergency Medicine; Emergency Provider Emergency Medicine; Family Provider Internal Medicine; PCP Internal Medicine
DX: M54.32 Sciatica, left side (principal); Z86.16 Personal history of COVID-19
CPT/HCPCS: 36415; 80048; 85025; 85379; 93971; 96374; 99284; J1885

== ENCOUNTER 2023-08-18 14:25 | Emergency (ER) | payer OTHER, MEDICARE, SELFPAY ==
[2023-08-18 14:36] VITALS: BP 163/71; PULSE 74; RESP 17; TEMP 36.5; O2SAT 98
--- NOTE | 2023-08-18 17:46 | ED_ITS ---
HPI - Back Pain/Injury <Manpreet Murdock PA-C - Last Filed: 08/18/23 19:25> General Chief Complaint: Back Pain/Injury Stated Complaint: sent by Dr. Gramajo requesting MRI Time Seen by Provider: 08/18/23 15:39 Source: patient History of Present Illness HPI Narrative: 72-year-old male past medical history hyperlipidemia, diabetic nephropathy presents to the ED with 5 days of left-sided lateral thigh pain and numbness. Pain started spontaneously after patient was bed bound for 3 days due to a COVID-19 infection. Patient was seen in the ED on 08/14/2023 for lateral thigh pain in the left leg, with pain medications for sciatica. He also had a negative DVT study during that visit. Since then, patient states he has continued to have leg pain, however this morning he started experiencing numbness in the lateral left thigh area going all the way down into his feet. Patient states that he could not feel the water hitting the lateral aspect of his foot. Patient states that he never actually experienced any back pain, however the pain starts low down in his buttock, traveling down the lateral aspect of the left thigh. Patient called his PCP Dr. Gramajo's office, they sent him to the ED for further evaluation and possible MRI. Patient denies tingling, weakness. Patient denies urinary hesitancy, fever, chills. No trauma. Related Data Home Medications Medication Instructions Recorded Confirmed CA PANTOTHENATE/FOLIC ACID/VIT 1 tab PO Q DAY ##0 12/26/10 08/11/23 (MULTIVITAMIN) acetaminophen 500 mg tablet 1,000 mg PO BID PRN 04/24/23 08/11/23 (Tylenol Extra Strength) celecoxib 200 mg capsule 200 mg PO BID 04/24/23 08/11/23 sulfasalazine 500 mg tablet 1,000 mg PO BID 08/11/23 08/11/23 Previous Rx's Medication Instructions Recorded rosuvastatin 20 mg tablet 20 mg PO DAILY #90 tabs 10/24/22 oxycodone 5 mg tablet 5 mg PO Q6H PRN pain #10 tabs 08/14/23 cyclobenzaprine 10 mg tablet 10 mg PO TID PRN muscle spasm #30 08/18/23 tabs methylprednisolone 4 mg tablets in See Rx Instructions PO .COMPLEX 08/18/23 a dose pack (Medrol (Conner)) #21 ea Allergies Allergy/AdvReac Type Severity Reaction Status Date / Time Penicillins [PENICILLINS] AdvReac Intermediate RASH Verified 08/18/23 14:38 Review of Systems <Manpreet Murdock PA-C - Last Filed: 08/18/23 19:25> Constitutional Constitutional: Denies chills, Denies fatigue, Denies fever(s), Denies frequent falls, Denies lethargy and Denies weakness Eyes Eyes: Denies change in vision, Denies eye discharge, Denies irritation and Denies loss of vision ENT Ears, Nose, Mouth, and Throat: Denies change in voice, Denies dizziness, Denies neck pain, Denies sore throat and Denies throat swelling Cardiovascular Cardiovascular: Denies chest pain, Denies irregular heart rhythm, Denies lightheadedness, Denies palpitations, Denies dyspnea, Denies dyspnea on exertion and Denies orthopnea Respiratory Respiratory: Denies cough, Denies dyspnea, Denies dyspnea on exertion and Denies wheezing Gastrointestinal Gastrointestinal: Denies abdominal pain, Denies change in bowel habits, Denies diarrhea, Denies nausea and Denies vomiting Musculoskeletal Musculoskeletal: Denies neck pain and Denies numbness Comments: Left lateral thigh pain and numbness Integumentary/Breasts Skin/Breast: Denies pruritus, Denies erythema, Denies rash and Denies wounds Neurologic Neurologic: Denies behavioral changes, Denies confusion, Denies dizziness, Denies frequent falls, Denies loss of vision, Denies numbness and Denies weakness Psychiatric Psychiatric: Denies anxiety, Denies behavioral changes, Denies confusion, Denies depression, Denies homicidal ideation and Denies suicidal ideation Endocrine Endocrine: Denies fatigue, Denies flushing and Denies palpitations Hematologic/Lymphatic Hematologic/Lymphatic: Denies easy bruising Allergic/Immunologic Allergic/Immunologic: Denies urticaria, Denies throat swelling and Denies wheezing Patient History <Manpreet Murdock PA-C - Last Filed: 08/18/23 19:25> Medical History Diabetic nephropathy Mixed hyperlipidemia 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 Diabetes type 2, controlled Seizure Mumps Partial blindness (~195) Adopted Hepatitis C Attention deficit disorder with hyperactivity (12/26/10) Surgical History Anesthesia History of hand surgery (~2007) S/P tonsillectomy (~1959) Social History Smoking Status: Former smoker Smoking Status: Former smoker alcohol intake frequency: 0-2 drinks per day Substance Use Type: does not use Exam <Manpreet Murdock PA-C - Last Filed: 08/18/23 19:25> Narrative Exam Narrative: Const General:?cooperative, healthy appearing and comfortable [facility] Head:?normal to inspection Ears:?hearing grossly normal bilaterally Nose:?external nose normal Face and sinus:?normal facial exam and sinuses nontender Mouth:?oral mucosae normal Throat:?posterior oropharynx normal Eyes General:?appearance normal, both eyes and all related structures Neck Neck:?normal visual inspection and no lymphadenopathy noted Resp Effort & Inspection:?normal respiratory effort Auscultation:?clear to auscultation bilaterally Cardio Rate:?regular rate Rhythm:?regular rhythm Musculoskeletal Full range of motion. No deformities, swelling, bruising. No pain with palpation. Patient able to bear weight and ambulate. Neuro General:?patient alert, patient awake and patient oriented x3 Initial Vital Signs Initial Vital Signs: Vital Signs Temperature 97.7 F 08/18/23 14:36 Pulse Rate 74 08/18/23 14:36 Respiratory Rate 17 08/18/23 14:36 Blood Pressure 163/71 H 08/18/23 14:36 Pulse Oximetry 98 08/18/23 14:36 Oxygen Delivery Method Room Air 08/18/23 14:36 <Micheline Peres MD - Last Filed: 08/19/23 02:02> Initial Vital Signs Initial Vital Signs: Vital Signs Temperature 97.7 F 08/18/23 14:36 Pulse Rate 74 08/18/23 14:36 Respiratory Rate 17 08/18/23 14:36 Blood Pressure 163/71 H 08/18/23 14:36 Pulse Oximetry 98 08/18/23 14:36 Oxygen Delivery Method Room Air 08/18/23 14:36 Course <Manpreet Murdock PA-C - Last Filed: 08/18/23 19:25> Orders Ordered: ED Orders 08/18/23 18:33 MR lumbar spine wo con Stat Discontinued Medications Dexamethasone (Dexamethasone 10 Mg/Ml Vial) 10 mg IV NOW ONE Stop: 08/18/23 20:18 Last Admin: 08/18/23 20:50 Dose: 10 mg Documented By: MARIA DEL ROSARIO Acetaminophen (Ofirmev) 1,000 mg in 100 mls @ 400 mls/hr IV NOW ONE Stop: 08/18/23 20:31 Last Infusion: 08/18/23 21:16 Dose: Infused Documented By: MARIA DEL ROSARIO Admin: 08/18/23 20:51 Dose: 400 mls/hr Documented By: MARIA DEL ROSARIO Ketorolac Tromethamine (Ketorolac 30 Mg/Ml Vial) 15 mg IV NOW ONE Stop: 08/18/23 20:18 Last Admin: 08/18/23 20:44 Dose: 15 mg Documented By: MARIA DEL ROSARIO Methocarbamol (Methocarbamol 500 Mg Tablet) 1,000 mg PO NOW ONE Stop: 08/18/23 20:18 Last Admin: 08/18/23 20:49 Dose: 1,000 mg Documented By: MARIA DEL ROSARIO Vital Signs Vital signs: Vital Signs - 8 hr 08/18/23 22:58 Pulse Rate 78 Respiratory Rate 19 Blood Pressure 154/70 H Pulse Oximetry 95 Oxygen Delivery Method Nasal Cannula <Micheline Peres MD - Last Filed: 08/19/23 02:02> Orders Ordered: ED Orders 08/18/23 18:33 MR lumbar spine wo con Stat Discontinued Medications Dexamethasone (Dexamethasone 10 Mg/Ml Vial) 10 mg IV NOW ONE Stop: 08/18/23 20:18 Last Admin: 08/18/23 20:50 Dose: 10 mg Documented By: MARIA DEL ROSARIO Acetaminophen (Ofirmev) 1,000 mg in 100 mls @ 400 mls/hr IV NOW ONE Stop: 08/18/23 20:31 Last Infusion: 08/18/23 21:16 Dose: Infused Documented By: MARIA DEL ROSARIO Admin: 08/18/23 20:51 Dose: 400 mls/hr Documented By: MARIA DEL ROSARIO Ketorolac Tromethamine (Ketorolac 30 Mg/Ml Vial) 15 mg IV NOW ONE Stop: 08/18/23 20:18 Last Admin: 08/18/23 20:44 Dose: 15 mg Documented By: MARIA DEL ROSARIO Methocarbamol (Methocarbamol 500 Mg Tablet) 1,000 mg PO NOW ONE Stop: 08/18/23 20:18 Last Admin: 08/18/23 20:49 Dose: 1,000 mg Documented By: MARIA DEL ROSARIO Vital Signs Vital signs: Vital Signs - 8 hr 08/18/23 22:58 Pulse Rate 78 Respiratory Rate 19 Blood Pressure 154/70 H Pulse Oximetry 95 Oxygen Delivery Method Nasal Cannula MDM - Back Pain/Injury <Manpreet Murdock PA-C - Last Filed: 08/18/23 19:25> MDM Narrative Medical decision making narrative: 72-year-old male past medical history hyperlipidemia, diabetic nephropathy presents to the ED with 5 days of left-sided lateral thigh pain and numbness. Given the new onset of numbness, will obtain an MRI. Awaiting MRI results. Care of this patient has been handed over to Dr. Micheline Peres at this time. Medical records reviewed: yes <Micheline Prees MD - Last Filed: 08/19/23 02:02> Imaging Data CT - cervical spine: Radiologist's Impression: PROCEDURE: MR LUMBAR SPINE WO CON INDICATIONS: Lower back pain TECHNIQUE: Noncontrast sagittal T1 spin echo and T2 fast echo, sagittal STIR, and T2 fast spin echo through the lumbar spine. In cases with scoliosis, additional coronal T2 fast spin echo may be performed. COMPARISON: [facility], , XR LUMBAR SPINE WITH OBLIQUES, 12/03/2022, 8:58. FINDINGS: Image quality: Excellent. Alignment and Curvature: Grade 1 anterolisthesis at L4-5 due to facet hypertrophy. Bone Marrow: No acute vertebral body compression fracture. No marrow infiltrating process. Mild edema is seen at the left pedicle of L3, which is likely related to facet hypertrophy. There are multilevel Modic type 1 and type 2 degenerative endplate changes. Spinal Cord: Conus medullaris terminates at the T12 level. Visualized cord demonstrates normal signal and size. Paraspinous Soft Tissues: No paravertebral masses. Left renal simple cyst is noted. T12-L1: No spinal canal stenosis or neural foraminal narrowing. L1-L2: Disc bulging with facet hypertrophy and buckling of the ligamentum flavum. Findings result in wwhr-uj-dadxoknd spinal canal narrowing and hptz-ct-riqivtbb bilateral neural foraminal narrowing. L2-L3: Disc bulging with facet hypertrophy and buckling of the ligamentum flavum. Findings result in kqjf-di-skdsgvji narrowing of the spinal canal and twnc-zx-ceuenqll left and mild right neural foraminal narrowing. L3-L4: Disc bulging with moderate bilateral facet hypertrophy and buckling of the ligamentum flavum. Findings result in moderate to severe narrowing of the spin al canal as well as moderate to severe left and sgjp-fw-cjnxefzk right neural foraminal narrowing. L4-L5: Disc bulging with bilateral facet hypertrophy and buckling of the ligamentum flavum. Findings result in moderate narrowing of the spinal canal as well as moderate bilateral neural foraminal narrowing. L5-S1: Disc desiccation and circumferential disc bulging with bilateral facet hypertrophy. There is mild protrusion in the left paraspinal region. Findings result in mild to moderate narrowing the spinal canal with effacement of the left lateral recess and impingement of the traversing left S2 nerve root as well as jqfs-wl-bditvtwx bilateral neural foraminal narrowing. IMPRESSION: 1. At L3-4, degenerative changes result in moderate to severe narrowing of the spinal canal as well as moderate to severe left neural foraminal narrowing and bssz-od-qnnamkaj right neural foraminal narrowing. 2. At L5-S1, a left paracentral disc protrusion effaces the left lateral recess and likely impinges upon the traversing left S2 nerve root. Recommend correlation with neurologic exam findings. There is also fxus-jl-cdfsehpw spinal canal narrowing and tepb-yk-hpjghniy bilateral neural foraminal narrowing at this level. 3. Additional multilevel degenerative disc disease and facet hypertrophy as described in detail in the body of the report. Approved by: Mehdi Eldridge M.D. on 08/18/2023 at 19:59 MDM Narrative Medical decision making narrative: 72-year-old male past medical history hyperlipidemia, diabetic nephropathy presents to the ED with 5 days of left-sided lateral thigh pain and numbness. Given the new onset of numbness, will obtain an MRI. Awaiting MRI results. Care of this patient has been handed over to Dr. Micheline Peres at this time. Medical records reviewed: yes Dr. Peres -care of patient is signed out to me by GEORGETTE Murdock. Lumbar spine MRI reviewed. Due to the reports of effacing of the S2 nerve root consulted Neurosurgery at [facility]. Patient has no bowel or bladder incontinence, rectal tone is intact, there was no saddle anesthesia present. Discussed case with Dr. Maynard of neurosurgery, who stated that patient could possibly be a surgical candidate but did not need to be transferred for emergent or urgent decompression. Recommended continued steroids and muscle relaxers. Consult placed with system for referral to spine clinic. Patient informed of lab and imaging findings as well as neurosurgical recommendations. Patient will be discharged on steroids and muscle relaxers. Counseled that he should be receiving a call in the next several days for appointment with spine clinic. Discharge Plan Departure Patient Disposition: Home Clinical Impression: Acute lumbar radiculopathy Instructions: DI for Lumbar Radiculopathy Activity Restrictions/Additional Instructions: Your MRI shows that you have rather severe lumbar radiculopathy, which is likely leading to the symptoms you are experiencing in your leg. I spoke with Neurosurgery, who thinks that you may possibly be a surgical candidate, but you do not need to be hospitalized or transferred to another facility at this time. [facility] spine clinic has your information and should call within the next 72 hours to set up an appointment with their clinic. Please call [phone] if you do not receive a call in 72 hours. Finish all of the steroid taper. The cyclobenzaprine as a muscle relaxer that may help your symptoms. This medication may cause drowsiness do not take it with alcohol or before operating heavy machinery. Prescriptions: New methylprednisolone [Medrol (Conner)] 4 mg tablets,dose pack See Rx Instructions .ROUTE .COMPLEX Qty: 21 0RF Rx Instructions: orally per package directions cyclobenzaprine 10 mg tablet 10 mg PO TID PRN (Reason: muscle spasm) Qty: 30 0RF No Action CA PANTOTHENATE/FOLIC ACID/VIT (MULTIVITAMIN) 1 tab PO Q DAY Qty: 0 rosuvastatin 20 mg tablet 20 mg PO DAILY Qty: 90 3RF celecoxib 200 mg capsule 200 mg PO BID acetaminophen [Tylenol Extra Strength] 500 mg tablet 1,000 mg PO BID PRN sulfasalazine 500 mg tablet 1,000 mg PO BID oxycodone 5 mg tablet 5 mg PO Q6H PRN (Reason: pain) Qty: 10 0RF Referrals: Karthikeyan Gramajo MD [Primary Care Provider] - Stand Alone Forms: Patient Portal/API
--- NOTE | 2023-08-18 18:33 | DI.MRI.S_ITS ---
PROCEDURE: MR LUMBAR SPINE WO CON INDICATIONS: Lower back pain TECHNIQUE: Noncontrast sagittal T1 spin echo and T2 fast echo, sagittal STIR, and T2 fast spin echo through the lumbar spine. In cases with scoliosis, additional coronal T2 fast spin echo may be performed. COMPARISON: [facility], CR, XR LUMBAR SPINE WITH OBLIQUES, 12/03/2022, 8:58. FINDINGS: Image quality: Excellent. Alignment and Curvature: Grade 1 anterolisthesis at L4-5 due to facet hypertrophy. Bone Marrow: No acute vertebral body compression fracture. No marrow infiltrating process. Mild edema is seen at the left pedicle of L3, which is likely related to facet hypertrophy. There are multilevel Modic type 1 and type 2 degenerative endplate changes. Spinal Cord: Conus medullaris terminates at the T12 level. Visualized cord demonstrates normal signal and size. Paraspinous Soft Tissues: No paravertebral masses. Left renal simple cyst is noted. T12-L1: No spinal canal stenosis or neural foraminal narrowing. L1-L2: Disc bulging with facet hypertrophy and buckling of the ligamentum flavum. Findings result in kbpu-ew-musykuyg spinal canal narrowing and qgeh-pj-udjwdudh bilateral neural foraminal narrowing. L2-L3: Disc bulging with facet hypertrophy and buckling of the ligamentum flavum. Findings result in hbdk-ib-vrqosblt narrowing of the spinal canal and luen-fv-yzrrfwzm left and mild right neural foraminal narrowing. L3-L4: Disc bulging with moderate bilateral facet hypertrophy and buckling of the ligamentum flavum. Findings result in moderate to severe narrowing of the spinal canal as well as moderate to severe left and itrm-vp-auisszyv right neural foraminal narrowing. L4-L5: Disc bulging with bilateral facet hypertrophy and buckling of the ligamentum flavum. Findings result in moderate narrowing of the spinal canal as well as moderate bilateral neural foraminal narrowing. L5-S1: Disc desiccation and circumferential disc bulging with bilateral facet hypertrophy. There is mild protrusion in the left paraspinal region. Findings result in mild to moderate narrowing the spinal canal with effacement of the left lateral recess and impingement of the traversing left S2 nerve root as well as fslj-do-aflqbpbd bilateral neural foraminal narrowing. IMPRESSION: 1. At L3-4, degenerative changes result in moderate to severe narrowing of the spinal canal as well as moderate to severe left neural foraminal narrowing and xcoq-zs-lbedflvh right neural foraminal narrowing. 2. At L5-S1, a left paracentral disc protrusion effaces the left lateral recess and likely impinges upon the traversing left S2 nerve root. Recommend correlation with neurologic exam findings. There is also lvjc-fg-jjlaornh spinal canal narrowing and vwwz-bx-rybhmvdw bilateral neural foraminal narrowing at this level. 3. Additional multilevel degenerative disc disease and facet hypertrophy as described in detail in the body of the report. Approved by: Mehdi Eldridge M.D. on 08/18/2023 at 19:59
[2023-08-18] MEDS: KETOROLAC 30 MG/ML VIAL 15 MG IV (20:44)
[2023-08-18] MEDS: methocarbamoL 500 MG TABLET 1000 MG PO (20:49)
[2023-08-18] MEDS: DEXAMETHASONE 10 MG/ML VIAL IV (20:50)
[2023-08-18] MEDS: ACETAMINOPHEN IV 1,000 MG/100 ML VIAL 400 MG IV (20:51)
[2023-08-18 22:58] VITALS: BP 154/70; PULSE 78; RESP 19; O2SAT 95
== END 2023-08-18 23:00 | disposition home or self-care (01) ==
PROVIDERS: Emergency Provider Student in an Organized Health Care Education/Training Program; Family Provider Internal Medicine; PCP Internal Medicine
DX: M54.16 Radiculopathy, lumbar region (principal)
CPT/HCPCS: 72148; 96365; 96375; 99284; J0136; J1100; J1885

== ENCOUNTER → 2023-10-24 08:06 | Outpatient (CLI) | payer OTHER, MEDICARE, SELFPAY ==
[2023-10-24 09:33] LABS: Alanine Aminotransferase 47 IU/L (<50); Albumin 4.9 g/dL (3.5-5.0); Albumin Globulin Ratio 1.5 (1.0-2.8); Alkaline Phosphatase 68 U/L (38-126); Aspartate Aminotransferase 50 IU/L (17-59); BUN Creatinine Ratio 41.7 (6-22); Bilirubin Total 0.6 mg/dL (0.2-1.3); Blood Urea Nitrogen 35 mg/dL (9-20); Calcium 9.9 mg/dL (8.4-10.2); Carbon Dioxide 24 mmol/L (22-32); Chloride 104 mmol/L (98-107); Cholesterol 147 mg/dL (140-199); Estimated Glomerular Filt Rate > 60 mL/min (>60); Globulin 3.3 g/dL (1.7-4.1); Glucose 115 mg/dL (80-110); HDL Cholesterol 47 mg/dL (40-60); HEMOLYSIS < 15 (0-50); LDL Cholesterol Calculated 74 mg/dL (<100); Potassium 4.6 mmol/L (3.4-5.1); Sodium 138 mmol/L (137-145); Total Protein 8.2 g/dL (6.3-8.2); Triglycerides 132 mg/dL (35-150)
[2023-10-24 10:14] LABS: Hemoglobin A1C% w Est Avg Glu 5.3 % (4.0-6.0)
[2023-10-24 10:34] LABS: Creatinine Urine Random 143.07 mg/dL
[2023-10-24 10:39] LABS: Microalbumin Urine Random 4.5 mg/dL (0-1.6)
== END ==
PROVIDERS: Family Provider Internal Medicine; PCP Internal Medicine; Referring Provider Internal Medicine; Visit Provider Internal Medicine
DX: E11.21 Type 2 diabetes mellitus with diabetic nephropathy (principal); E78.2 Mixed hyperlipidemia; B19.20 Unspecified viral hepatitis C without hepatic coma
CPT/HCPCS: 36415; 80053; 80061; 82043; 82570; 83036

== ENCOUNTER → 2024-05-06 08:21 | Outpatient (CLI) | payer MEDICARE, OTHER, SELFPAY ==
[2024-05-06 09:47] LABS: Alanine Aminotransferase 51 IU/L (<50); Albumin 5.2 g/dL (3.5-5.0); Albumin Globulin Ratio 1.6 (1.0-2.8); Alkaline Phosphatase 61 U/L (38-126); Aspartate Aminotransferase 57 IU/L (17-59); BUN Creatinine Ratio 26.4 (6-22); Bilirubin Total 0.5 mg/dL (0.2-1.3); Blood Urea Nitrogen 32 mg/dL (9-20); Calcium 10.1 mg/dL (8.4-10.2); Carbon Dioxide 24 mmol/L (22-32); Chloride 105 mmol/L (98-107); Cholesterol 168 mg/dL (140-199); Estimated Glomerular Filt Rate > 60 mL/min (>60); Globulin 3.2 g/dL (1.7-4.1); Glucose 111 mg/dL (80-110); HDL Cholesterol 38 mg/dL (40-60); HEMOLYSIS < 15 (0-50); LDL Cholesterol Calculated 88 mg/dL (<100); Potassium 4.9 mmol/L (3.4-5.1); Sodium 139 mmol/L (137-145); Total Protein 8.4 g/dL (6.3-8.2); Triglycerides 208 mg/dL (35-150)
[2024-05-06 10:33] LABS: Hemoglobin A1C% w Est Avg Glu 4.9 % (4.0-6.0)
== END ==
PROVIDERS: Family Provider Internal Medicine; PCP Internal Medicine; Referring Provider Internal Medicine; Visit Provider Internal Medicine
DX: E11.21 Type 2 diabetes mellitus with diabetic nephropathy (principal); E11.9 Type 2 diabetes mellitus without complications; E78.2 Mixed hyperlipidemia
CPT/HCPCS: 36415; 80053; 80061; 83036

== ENCOUNTER → 2024-05-20 09:36 | Outpatient (CLI) | payer MEDICARE, OTHER, SELFPAY ==
--- NOTE | 2024-05-20 09:37 | DI.RAD.S_ITS ---
PROCEDURE: XR ACUTE ABDOMEN SERIES INDICATIONS: abd pain TECHNIQUE: One view chest and two views of the abdomen were acquired. COMPARISON: None. FINDINGS: Surgical changes and devices: None. Chest: Lungs are clear. Heart size is normal. No pleural effusions. No pneumoperitoneum. Abdomen: Bowel gas pattern is normal. No suspicious calcifications. Visualized solid organ contours appear normal. Bones: No suspicious bony lesions. IMPRESSION: No acute abnormality. Dictated by: Ricco Pelletier M.D. on 05/20/2024 at 22:40 Approved by: Ricco Pelletier M.D. on 05/20/2024 at 22:51
== END ==
PROVIDERS: Family Provider Internal Medicine; PCP Internal Medicine; Referring Provider Internal Medicine; Visit Provider Internal Medicine
DX: R10.9 Unspecified abdominal pain (principal)
CPT/HCPCS: 74022

== ENCOUNTER → 2024-11-04 09:19 | Outpatient (CLI) | payer MEDICARE, OTHER, SELFPAY ==
[2024-11-04 10:27] LABS: Alanine Aminotransferase 68 IU/L (<50); Albumin 5.0 g/dL (3.5-5.0); Albumin Globulin Ratio 1.4 (1.0-2.8); Alkaline Phosphatase 78 U/L (38-126); Blood Urea Nitrogen 38 mg/dL (9-20); Calcium 10.0 mg/dL (8.4-10.2); Carbon Dioxide 26 mmol/L (22-32); Chloride 106 mmol/L (98-107); Cholesterol 257 mg/dL (140-199); Estimated Glomerular Filt Rate > 60 mL/min (>60); Globulin 3.5 g/dL (1.7-4.1); Glucose 109 mg/dL (70-99); HDL Cholesterol 36 mg/dL (40-60); HEMOLYSIS < 15 (0-50); Potassium 5.7 mmol/L (3.4-5.1); Sodium 140 mmol/L (137-145); Total Protein 8.5 g/dL (6.3-8.2); Triglycerides 428 mg/dL (35-150)
[2024-11-04 10:56] LABS: Hemoglobin A1C% w Est Avg Glu 5.3 % (4.0-6.0)
[2024-11-04 11:11] LABS: Microalbumi Creatinin Ratio Ur 52.0 ug/mg CR (<30)
[2024-11-04 13:47] LABS: Creatine Kinase 388 U/L (55-170)
== END ==
PROVIDERS: Family Provider Internal Medicine; PCP Internal Medicine; Referring Provider Internal Medicine Rheumatology; Visit Provider Internal Medicine Rheumatology
DX: E11.9 Type 2 diabetes mellitus without complications (principal); E78.2 Mixed hyperlipidemia; B19.20 Unspecified viral hepatitis C without hepatic coma; L40.50 Arthropathic psoriasis, unspecified
CPT/HCPCS: 36415; 80053; 80061; 82043; 82550; 82570; 83036